=== PATIENT | female | born 1955 | race Caucasian/White ===

== ENCOUNTER 2017-12-29 18:48 | Emergency (ER) | payer OTHER, SELFPAY ==
[2017-12-29 18:55] VITALS: BP 222/117; PULSE 80; RESP 24; TEMP 36.7; O2SAT 99; BMI 26.9
--- NOTE | 2017-12-29 18:58 | DI.RAD.S_ITS ---
PROCEDURE: XR WRIST LT MIN 3V INDICATIONS: injury, pain, deformity TECHNIQUE: 3 views of the wrist were acquired. COMPARISON: None. FINDINGS: Bones: Impacted distal radial fracture is present. There is loss of the normal volar angulation of the distal radial articular surface. There is also ulnar styloid fracture, minimally displaced. Soft tissues: No suspicious soft tissue calcifications. IMPRESSION: Impacted distal radial fracture. Minimally displaced ulnar styloid fracture. Dictated by: Romeo Veloz M.D. on 12/29/2017 at 19:31 Approved by: Romeo Veloz M.D. on 12/29/2017 at 19:33
[2017-12-29] MEDS: HYDROMORPHONE 2 MG INJ 1 MG IV (20:22)
--- NOTE | 2017-12-29 20:53 | DI.RAD.S_ITS ---
PROCEDURE: XR WRIST LT 2V INDICATIONS: reduction splint TECHNIQUE: 2 views of the wrist were acquired. COMPARISON: [facility], CR, XR WRIST LT MIN 3V, 12/29/2017, 18:43. FINDINGS: Bones: There is improved alignment of distal radial fracture with less impaction. There is no definite change in alignment of the ulnar styloid fracture. Persistent loss of the normal volar angulation of the distal radial articular surface Soft tissues: No suspicious soft tissue calcifications. IMPRESSION: Distal radial and ulnar fractures as above with improved alignment Dictated by: Romeo Veloz M.D. on 12/29/2017 at 22:04 Approved by: Romeo Veloz M.D. on 12/29/2017 at 22:05
[2017-12-29 21:03] VITALS: BP 134/83; PULSE 89; RESP 14; O2SAT 96
[2017-12-29] MEDS: HYDROCODONE/ACET 5/325 PREPACK 1 BOTTLE MISC (21:04)
--- NOTE | 2017-12-30 04:41 | ED_ITS ---
HPI - Extremity Injury (Upper) General Chief Complaint: Extremity Injury, Upper Stated Complaint: pT STATES fx l WRIST Time Seen by Provider: 12/29/17 20:06 Source: patient and RN notes reviewed Mode of arrival: ambulatory Limitations: no limitations History of Present Illness HPI narrative: Patient is a 62-year-old female presenting with a left wrist pain. She you with in the bathroom trying to wash her feet off in the sink when she lost her balance falling directly onto her wrist. No head injury no loss of consciousness no other injuries. She is tearful in in quite a bit of pain. She denies any numbness or tingling. There is obvious deformity at the wrist. MD complaint: injury to: wrist Onset (ago): minute(s) (Prior to arrival) Related Data Home Medications Medication Instructions Recorded Confirmed albuterol sulfate [Proventil HFA] 1 puff INH #0 08/12/17 budesonide-formoterol [Symbicort] 2 puff INH BID #0 08/12/17 buspirone 10 mg PO QPM #0 08/12/17 calcium carbonate 600 mg PO QDAY #0 08/12/17 cholecalciferol (vitamin D3) 1,000 unit PO QDAY #0 08/12/17 [Vitamin D3] desloratadine 5 mg PO QDAY #0 08/12/17 fluticasone 2 spray INTRANASAL QDAY #0 08/12/17 gabapentin 100 mg PO TID #0 08/12/17 meloxicam 15 mg PO QDAY #0 08/12/17 omeprazole 20 mg PO BIDP PRN #0 08/12/17 zolpidem [Ambien] 5 mg PO HSP PRN #0 08/12/17 Previous Rx's Medication Instructions Recorded hydrocodone-acetaminophen [[place]] 1 tab PO Q4H PRN #10 tab 12/29/17 Allergies Allergy/AdvReac Type Severity Reaction Status Date / Time Sulfa (Sulfonamide Allergy Severe ITCHING Verified 12/29/17 20:22 Antibiotics) [SULFA (SULFONAMIDE ANTIBIOTICS)] Review of Systems Review of Systems All systems reviewed & are unremarkable except as noted in HPI and below Constitutional Denies chills, Denies fever(s), Denies frequent falls and Denies headache(s) ENT Ears, Nose, Mouth, and Throat: Denies headache(s) Cardiovascular Denies chest pain, Denies syncope, Denies rapid heart rate, Denies irregular heart rhythm, Denies lightheadedness, Denies palpitations, Denies dyspnea, Denies dyspnea on exertion and Denies orthopnea Respiratory Denies cough, Denies dyspnea, Denies dyspnea on exertion and Denies wheezing Gastrointestinal Gastrointestinal: Denies abdominal pain, Denies change in bowel habits, Denies diarrhea, Denies nausea and Denies vomiting Musculoskeletal Reports system reviewed and no additional complaints, except as docu, Reports deformity, Denies numbness and Denies tingling Integumentary/Breasts Denies bleeding lesions, Denies pruritus, Denies erythema, Denies rash and Denies wounds Neurologic Denies syncope, Denies frequent falls, Denies headache(s), Denies numbness and Denies tingling Endocrine Denies palpitations Allergic/Immunologic Denies wheezing PFSH Medical History TIA (transient ischemic attack) (Acute) Social History Smoking Status: Never smoker Exam Initial Vital Signs Initial Vital Signs: Vital Signs Temperature 98.1 F 12/29/17 18:55 Pulse Rate 80 12/29/17 18:55 Respiratory Rate 24 12/29/17 18:55 Blood Pressure 222/117 H 12/29/17 18:55 Pulse Oximetry 99 12/29/17 18:55 Const General: acute distress (In pain) and anxious [facility] Head: normal to inspection, normocephalic and atraumatic Ears: hearing grossly normal bilaterally Face and sinus: normal facial exam and face symmetric Neck Neck: full ROM Resp Effort & Inspection: normal respiratory effort and able to speak in complete sentences Cardio Pulses: radial pulses present and ulnar radial pulses present Neuro General: alert, awake and oriented x3 Extrem Left upper extremity: wrist Details: abnormal to inspection Details: obvious deformity, swelling Location: of the dorsal wrist, normal ROM (Able to add in abduct all fingers, not able to move wrist), radial pulse present and ulnar pulse present; no lacerations and no foreign bodies Procedures Nerve Block Nerve Block 1: Time out performed: Yes Local Anesthetic: lidocaine 1% Amount of anesthesia used (mL): 5 Side: left Nerve Blocks: hematoma block Procedure Successful: Yes Patient Tolerated Procedure: Well and No complications Complications: none Orthopedic Fracture Reduction Fracture #1: Time Out Performed: Yes Side: left Fracture Reduction Location: radius and ulna Analgesia: hematoma block Technique: direct manipulation Post Reduction X-rays Demonstrate: acceptable reduction Post-reduction neuro exam: intact and no change Post-reduction vascular exam: intact and no change Splint Applied: Yes Patient Tolerated Procedure: Well Course Hospital Course: 1. Splint applied to left wrist 2. Type of device applied; sugar-tong 3. Applied by me with nursing assistance 4. Examined post splint, with good alignment and neurovascular intact Orders Ordered: ED Orders 12/29/17 20:53 XR wrist LT 2V Stat Discontinued Medications Hydrocodone Bitart/Acetaminophen (Vicodin Prepack) 1 bottle MISC SEEINSTR ONE Stop: 12/29/17 20:54 Last Admin: 12/29/17 21:04 Dose: 1 bottle Hydromorphone HCl (Dilaudid) 1 mg IV NOW ONE Stop: 12/29/17 20:16 Last Admin: 12/29/17 20:22 Dose: 1 mg Vital Signs - 8 hr 12/29/17 21:03 Pulse Rate 89 Respiratory Rate 14 Blood Pressure [Right Arm] 134/83 H Pulse Oximetry 96 MDM - Extremity Injury (Upper) Differential Diagnosis Differential diagnosis: Likely fracture of wrist, fracture of hand, dislocation of shoulder and fracture of clavicle Medical Records Attestation: I reviewed the patient's medical records. Imaging Data Left wrist x-ray: Attestation: I personally reviewed and interpreted this imaging study as follows: Radiologist's impression: PROCEDURE: XR WRIST LT MIN 3V INDICATIONS: injury, pain, deformity TECHNIQUE: 3 views of the wrist were acquired. COMPARISON: None. FINDINGS: Bones: Impacted distal radial fracture is present. There is loss of the normal volar angulation of the distal radial articular surface. There is also ulnar styloid fracture, minimally displaced. Soft tissues: No suspicious soft tissue calcifications. IMPRESSION: Impacted distal radial fracture. Minimally displaced ulnar styloid fracture. Post reduction: Attestation: I personally reviewed and interpreted this imaging study as follows: Radiologist's impression: PROCEDURE: XR WRIST LT 2V INDICATIONS: reduction splint TECHNIQUE: 2 views of the wrist were acquired. COMPARISON: [facility], XR WRIST LT MIN 3V, 12/29/2017, 18:43. FINDINGS: Bones: There is improved alignment of distal radial fracture with less impaction. There is no definite change in alignment of the ulnar styloid fracture. Persistent loss of the normal volar angulation of the distal radial articular surface Soft tissues: No suspicious soft tissue calcifications. IMPRESSION: Distal radial and ulnar fractures as above with improved alignment MDM Narrative Medical decision making narrative: Patient is given sling. Her directed the follow up with Orthopedics. He is feeling much better. Initial blood pressure was quite elevated over after pain medications and hematoma block she is doing much better. Discharge Plan Departure Patient Disposition: Home, Self-Care Clinical Impression: Fracture of left wrist Discharge Date/Time: 12/29/17 21:19 Interventions: ED Discharge Assessment Last Done: 12/29/17 21:17 Instructions: DI for Wrist Fracture Activity Restrictions/Additional Instructions: *You have been diagnosed with left wrist fracture *What to do: Keep in splint at all times, wear sling while active *Take medications as directed -[place] 1 tablet every 4 hr or 2 tablets every 6 hr *Follow up with your primary care provider in 2-3 days, call Orthopedics tomorrow to schedule follow-up appointment *Return to ER if you should have increased numbness or tingling or any new, worsening or concerning symptoms Prescriptions: New hydrocodone-acetaminophen [[place]] 5-325 mg tablet 1 tab PO Q4H PRN (Reason: pain) Qty: 10 RF: 0 No Action desloratadine 5 MG tablet 5 mg PO QDAY Qty: 0 RF: 0 zolpidem [Ambien] 10 MG tablet 5 mg PO HSP PRNQty: 0 RF: 0 albuterol sulfate [Proventil HFA] 90 MCG/PUFF HFA aerosol inhaler 1 puff INH Qty: 0 RF: 0 fluticasone 16 GM spray,suspension 2 spray Intranasal QDAY Qty: 0 RF: 0 budesonide-formoterol [Symbicort] 80 MCG/4.5 MCG HFA aerosol inhaler 2 puff INH BID Qty: 0 RF: 0 omeprazole 20 MG capsule,delayed release(DR/EC) 20 mg PO BIDP PRNQty: 0 RF: 0 gabapentin 100 MG capsule 100 mg PO TID Qty: 0 RF: 0 cholecalciferol (vitamin D3) [Vitamin D3] 1,000 UNIT tablet 1,000 unit PO QDAY Qty: 0 RF: 0 calcium carbonate 600 MG tablet 600 mg PO QDAY Qty: 0 RF: 0 buspirone 5 MG tablet 10 mg PO QPM Qty: 0 RF: 0 meloxicam 15 MG tablet 15 mg PO QDAY Qty: 0 RF: 0 Referrals: [facility] [Outside] Juanita Rees PA-C [Primary Care Provider] -
== END 2017-12-29 21:19 | disposition home or self-care (01) ==
PROVIDERS: Emergency Provider Emergency Medicine; Family Provider Physician Assistant; PCP Physician Assistant
DX: S62.102A Fracture of unspecified carpal bone, left wrist, initial encounter for closed fracture (principal); W17.89XA Other fall from one level to another, initial encounter
CPT/HCPCS: 73100; 73110; 96374; 99282; 99283; 99284; J1170

== ENCOUNTER 2018-02-24 07:54 | Day surgery (SDC) | payer OTHER, SELFPAY ==
[2018-02-24 08:17] VITALS: BP 120/82; PULSE 87; RESP 15; TEMP 36.8; O2SAT 94
[2018-02-24] MEDS: SODIUM CHLORIDE 0.9% 1,000 ML 200 ML IV (08:35)
--- NOTE | 2018-02-24 08:57 | SUR.PREOP ---
Pt is ready for procedure at this time. Nursing assessment has been completed, PIV in place and IV running at TKO. Medication history has been reviewed with Pt and she has brought in her Medical history form. Awaiting Dr Crowley to see Pt and sign the consent.
--- NOTE | 2018-02-24 09:12 | PM.HP.1 ---
History of Present Illness Date Patient Seen: 02/24/18 Time Patient Seen: 09:12 Chief complaint: [id number] SCREENING COLONOSCOPY Narrative: Jennifer is a very pleasant 62-year-old lady who presents today for screening colonoscopy. She denies any problems or symptoms related to the function of her GI tract. She reports her last colonoscopy was more than 10 years ago. Her weight is fairly stable though she thinks she may have lost her 3 lb over the summer. Patient History Medical History TIA (transient ischemic attack) (Acute) Family & Social History Family History: Reviewed 02/24/18 by Nanette Crowley MD Social History: household members spouse Tobacco & Substance use: Smoking Status Never smoker alcohol intake frequency 0-2 drinks per day Substance Use Type does not use Meds Home Medications Medication Instructions Recorded Confirmed Type albuterol sulfate [Proventil HFA] 1 puff INH PRN PRN #0 08/12/17 02/24/18 History budesonide-formoterol [Symbicort] 2 puff INH DAILY #0 08/12/17 02/24/18 History buspirone 10 mg PO QPM #0 08/12/17 02/24/18 History calcium carbonate 600 mg PO QDAY #0 08/12/17 History cholecalciferol (vitamin D3) 1,000 unit PO QDAY #0 08/12/17 History [Vitamin D3] desloratadine 5 mg PO QDAY #0 08/12/17 02/24/18 History fluticasone 2 spray INTRANASAL QDAY #0 08/12/17 02/24/18 History gabapentin 100 mg PO SEEINSTR PRN #0 08/12/17 02/24/18 History meloxicam 15 mg PO QDAY #0 08/12/17 History omeprazole 20 mg PO BID #0 08/12/17 02/24/18 History zolpidem [Ambien] 5 mg PO HSP PRN #0 08/12/17 History hydrocodone-acetaminophen [[place]] 1 tab PO Q4H PRN #10 tab 12/29/17 Rx Ambien 1 tab PO DAILY 02/24/18 02/24/18 History fluticasone 1 spray DAILY 02/24/18 02/24/18 History Allergies Allergy/AdvReac Type Severity Reaction Status Date / Time Sulfa (Sulfonamide Allergy Severe ITCHING Verified 02/24/18 08:43 Antibiotics) [SULFA (SULFONAMIDE ANTIBIOTICS)] Review of Systems Review of Systems All systems reviewed & are unremarkable except as noted in HPI and below Exam Vital Signs (past 8 hours): - 02/24/18 08:17 Temperature 98.2 F Pulse Rate 87 Respiratory Rate 15 Blood Pressure 120/82 H Pulse Oximetry 94 Oxygen Delivery Method Room Air Narrative Exam Narrative: Very pleasant 6-year-old lady in no distress HEENT: Normocephalic and atraumatic, pupils equal round reactive to light accommodation with anicteric sclera Lungs: Clear to auscultation bilaterally Heart: Regular rate and rhythm Abdomen: Soft, nontender, active bowel sounds. Extremities: Warm and well perfused Assessment & Plan Plan: Assessment/Plan Narrative: Lo 62-year-old lady who is generally very healthy. She presents today for screening colonoscopy. We discussed the risks and benefits of the procedure the patient expressed a desire to completed today.
[2018-02-24] MEDS: MIDAZOLAM 5 MG/5 ML VIAL IV (09:37)
[2018-02-24] MEDS: fentaNYL 250 MCG/5 ML INJ IV (09:37)
[2018-02-24 09:42] VITALS: BP 106/72; PULSE 83; RESP 14; TEMP 36.6; O2SAT 94
--- NOTE | 2018-02-24 09:42 | PM.OP.1 ---
Operative Date/Time/Diagnoses Date of procedure: 02/24/18 Time of procedure: 09:43 Pre-op diagnosis: Screening colonoscopy Post-op diagnosis: same Procedure & Clinicians Procedure: Colonoscopy to the cecum Same procedure as scheduled: Yes Indications: Last colonoscopy more than 10 years ago Surgeon: Nanette Crowley Click Yes if Unassisted: Yes Anesthesia Type: Sedation (Versed 5 mg; fentanyl 200 mcg) Operative Notes Findings: 1. Excellent prep 2. No polyps or mass lesions 3. No AV malformations 4. Scattered diverticuli with a few large pockets. There are relatively more in the sigmoid colon then the remainder of the colon but no concentrated areas of disease. 5. Grade 1-2 internal hemorrhoids Closure Type: not applicable Specimen(s): none sent Estimated Blood Loss (mL): 0 Procedure in detail: After obtaining informed consent, the patient was brought to the GI suite and placed in the left lateral decubitus position on the examination table. After placement of appropriate monitors, the patient was given incremental doses of Versed and Fentanyl until an appropriate level of sedation was achieved. A time out was held per SCOAP protocol. A digital rectal examination was performed and did not reveal any masses or obstructing lesions. The colonoscope was gently passed into the patient's anus and the entire colon navigated to the level of the cecum with minimal difficulty. Once in the cecum, the scope was withdrawn being sure to go before and beyond all mucosal folds and prominences and get an excellent examination. The findings are noted above. At the level of the rectal vault, the scope was retroflexed and the internal anal canal was examined. The scope was straightened and air aspirated from the colon. The instrument was removed from the patient's body and the procedure was concluded. The patient was allowed to awaken from sedation without difficulty and taken to the post-anesthesia care unit in good condition. Total sedation time was 20 min Total withdrawal time was 7 min 16 sec Complications: none Condition: stable Disposition: PACU Plan for aftercare: 1. Discharge to home 2. Plan for next colonoscopy in 10 years or as clinically indicated
[2018-02-24 09:47] VITALS: BP 108/76; PULSE 82; RESP 15; O2SAT 95
[2018-02-24 09:53] VITALS: BP 110/79; PULSE 79; RESP 13; TEMP 36.1; O2SAT 95
[2018-02-24 09:57] VITALS: BP 108/73; PULSE 75; RESP 15; TEMP 36.4; O2SAT 95
[2018-02-24 10:02] VITALS: BP 119/78; PULSE 79; RESP 16; TEMP 36.2; O2SAT 97
== END 2018-02-24 10:13 | disposition home or self-care (01) ==
PROVIDERS: Family Provider Physician Assistant; PCP Physician Assistant; Visit Provider Surgery
PROC: 0DJD8ZZ Inspection of Lower Intestinal Tract, Via Natural or Artificial Opening Endoscopic (ICD-10-PCS; CPT 45378; principal; 2018-02-24 08:45)
DX: Z12.11 Encounter for screening for malignant neoplasm of colon (principal); K57.30 Diverticulosis of large intestine without perforation or abscess without bleeding; K64.1 Second degree hemorrhoids; Z86.73 Personal history of transient ischemic attack (TIA), and cerebral infarction without residual deficits
CPT/HCPCS: 45378; 99152; J2250; J3010

== ENCOUNTER → 2018-09-01 13:59 | Outpatient (CLI) | payer OTHER, SELFPAY ==
--- NOTE | 2018-09-01 | DI.RAD.S_ITS ---
PROCEDURE: XR WRIST LT MIN 3V INDICATIONS: LEFT WRIST PAIN TECHNIQUE: 4 views of the wrist were acquired. COMPARISON: [facility], CR, XR WRIST LT MIN 3V, 12/29/2017, 18:43. [facility], CR, XR WRIST LT 2V, 12/29/2017, 20:56. FINDINGS: Bones: Plate and screw fixation of the distal radius and expected postoperative alignment. The hardware appears intact. First CMC and triscaphe joint degeneration. Ulnar styloid fracture as before Soft tissues: No suspicious soft tissue calcifications. IMPRESSION: Expected postoperative alignment of plate and screw fixation of the distal radius Dictated by: Romeo Veloz M.D. on 09/01/2018 at 15:13 Approved by: Romeo Veloz M.D. on 09/01/2018 at 15:17
== END ==
PROVIDERS: Family Provider Physician Assistant; PCP Physician Assistant; Visit Provider Family Medicine
DX: M25.532 Pain in left wrist (principal); S52.502D Unspecified fracture of the lower end of left radius, subsequent encounter for closed fracture with routine healing; S52.612D Displaced fracture of left ulna styloid process, subsequent encounter for closed fracture with routine healing; M18.12 Unilateral primary osteoarthritis of first carpometacarpal joint, left hand
CPT/HCPCS: 73110

== ENCOUNTER → 2018-09-08 11:03 | Outpatient (CLI) | payer OTHER, SELFPAY ==
--- NOTE | 2018-09-08 | DI.RAD.S_ITS ---
PROCEDURE: FL BARIUM SWALLOW INDICATIONS: DYSPHAGIA COMPARISON: None. FINDINGS: Function: There is normal esophageal peristalsis. No elicited gastroesophageal reflux. Morphology: Air-contrast images demonstrate normal mucosal morphology. Single contrast views show no esophageal strictures, extrinsic mass effects, or diverticula. Limited images of the stomach demonstrate normal appearance. IMPRESSION: Normal examination. Dictated by: Jeffery Hines M.D. on 09/08/2018 at 12:16 Approved by: Jeffery Hines M.D. on 09/08/2018 at 12:17
== END ==
PROVIDERS: Family Provider Physician Assistant; PCP Physician Assistant; Visit Provider Family Medicine
DX: R13.10 Dysphagia, unspecified (principal)
CPT/HCPCS: 74220

== ENCOUNTER → 2018-10-05 10:43 | Outpatient (CLI) | payer OTHER, SELFPAY ==
--- NOTE | 2018-10-05 | DI.MRI.S_ITS ---
PROCEDURE: MR WRIST LT W CON INDICATIONS: Other intraarticular fracture of lower end of left radius TECHNIQUE: After the administration of 3-4 mL of dilute intra-articular Gadolinium contrast into the radiocarpal compartment, coronal T1 spin echo with fat saturation and T2 fast spin echo with fat saturation, axial T1 spin echo and T2 fast spin echo with fat saturation, sagittal T1 spin echo with and without fat saturation through the wrist. COMPARISON: [facility], CR, XR WRIST LT MIN 3V, 09/01/2018, 14:06. FINDINGS: Image quality: Susceptibility artifact is noted in distal radius from internal fixation hardware.. Bones and cartilage: Patient is status post internal fixation of distal radius with extensive blooming metallic artifact partially limits evaluation of marrow signal. The carpal bones are normally aligned. No gross marrow edema is seen. No gross acute fracture or dislocation is noted. No gross bony erosive changes are seen.. No evidence for avascular necrosis. Mild osteoarthritic changes along radial aspect of wrist joints are seen. Carpal ligaments: The scapholunate and lunotriquetral ligaments appear intact, without gadolinium extravasation into the mid-carpal compartment. The radioscaphocapitate and radiolunotriquetral ligaments appear intact. The arcuate ligament and short radiolunate ligament also appear normal. The dorsal intercarpal and radiotriquetral ligaments appear intact. On sagittal images, the pisohamate ligament appears intact. Triangular fibrocartilage complex: There is suggestion of triangular fibrocartilage tear near its radial insertion with contrast extending to distal radioulnar joint space. The adjacent meniscal homolog appears normal. The ulnar collateral ligament appears intact. The extensor carpi ulnaris tendon is normal in location and morphology. Tendons and soft tissues: The carpal tunnel structures appear normal, including the median nerve. The ulnar nerve appears normal within Guyon's canal. All six extensor tendon compartments demonstrate normal morphology, without pathologic tendon sheath fluid. No soft tissue ganglion cysts. IMPRESSION: 1. Post internal fixation changes in distal radius with significant susceptibility artifacts. No gross marrow edema. No gross acute fracture or dislocation. 2. Wrist intrinsic and extrinsic ligaments are grossly intact. 3. 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 4. Suggestion of TFCC tear near its radial insertion with contrast extending to distal radioulnar joint space. 5. Wrist tendons are grossly intact. Dictated by: Emir Sheridan M.D. on 10/05/2018 at 14:04 Approved by: Emir Sheridan M.D. on 10/05/2018 at 14:21
--- NOTE | 2018-10-05 | DI.RAD.S_ITS ---
PROCEDURE: FL WRIST INJECTION MR/CT LT INDICATIONS: Other intraarticular fracture of lower end of left TECHNIQUE: After informed consent had been obtained, the wrist was examined fluoroscopically, and a site chosen for injection of the radiocarpal compartment from a dorsal approach. Skin was prepped and draped in a sterile fashion and 1% lidocaine infiltrated from the skin down to the articular surface. A hypodermic needle was then introduced into the articular space and a modest amount of contrast medium was instilled confirming intra-articular needle tip placement. This was followed by approximately 4 mL of a dilute gadolinium solution. Needle was removed and dressing was applied. The patient experienced no complications throughout the procedure and left the fluoroscopic suite in no apparent distress. FINDINGS: A single fluoroscopic spot image demonstrates intra-articular location to injected iodinated contrast. IMPRESSION: Successful fluoroscopic-guided administration of dilute Gadolinium solution for wrist MR arthrogram. Dictated by: Jeffery Hines M.D. on 10/05/2018 at 14:17 Approved by: Jeffery Hines M.D. on 10/05/2018 at 14:18
== END ==
PROVIDERS: Family Provider Physician Assistant; PCP Physician Assistant; Visit Provider Orthopaedic Surgery
DX: S52.572A Other intraarticular fracture of lower end of left radius, initial encounter for closed fracture (principal)
CPT/HCPCS: 20605; 73222; 76000

== ENCOUNTER → 2018-11-07 09:48 | Outpatient (CLI) | payer OTHER, SELFPAY ==
--- NOTE | 2018-11-07 | DI.RAD.S_ITS ---
PROCEDURE: XR RIBS LT MIN 3V W CXR1V INDICATIONS: LEFT RIB PAIN TECHNIQUE: 2 views of the left ribs were acquired, along with a single view chest. COMPARISON: None. FINDINGS: Surgical changes and devices: None. Bones and chest wall: No displaced acute rib fractures visualized. There is, however, subtle periosteal reaction or callus formation in the lateral aspect of the left second, third and fourth ribs. No suspicious bony lesions. Overlying soft tissues appear unremarkable. Lungs and pleura: No pleural effusions or pneumothorax. Lungs appear clear. Mediastinum: Mediastinal contours appear normal. Heart size is normal. IMPRESSION: Possible late subacute or old fractures of the left second, third and fourth rib fractures. Dictated by: Erick Pennington M.D. on 11/07/2018 at 10:32 Approved by: Erick Pennington M.D. on 11/07/2018 at 10:46
== END ==
PROVIDERS: Family Provider Physician Assistant; PCP Physician Assistant; Visit Provider Physician Assistant
DX: R07.81 Pleurodynia (principal)
CPT/HCPCS: 71101

== ENCOUNTER → 2019-06-02 13:17 | Outpatient (CLI) | payer OTHER, SELFPAY ==
[2019-06-02 14:26] LABS: Add Manual Diff / Slide Review NO; Basophils Absolute Auto 0 /uL (0-100); Basophils Percent Auto 0.7 % (0-2); Eosinophils Absolute Auto 100 /uL (0-450); Eosinophils Percent Auto 1.5 % (2-4); Hematocrit 39.8 % (36-46); Hemoglobin 13.5 g/dL (12.0-16.0); Lymphocytes Absolute Auto 1400 /uL (1100-4500); Lymphocytes Percent Auto 29.4 % (25-40); Mean Corpuscular HGB Conc 33.9 % (30-36); Mean Corpuscular Hemoglobin 28.9 PG (26-34); Mean Corpuscular Volume 85.1 fL (80-100); Monocytes Absolute Auto 300 /uL (0-900); Monocytes Percent Auto 5.6 % (3-14); Neutrophils Absolute Auto 3000 /uL (1500-7000); Neutrophils Percent Auto 62.8 % (50-75); Platelet Count 372 X10^3/uL (150-400); Red Blood Cell Count 4.67 X10^6/uL (4.0-5.2); Red Cell Distribution Width 14.1 % (11.6-14.8); White Blood Cell Count 4.7 X10^3/uL (4.5-11.0)
[2019-06-02 14:36] LABS: Alanine Aminotransferase 18 IU/L (9-52); Albumin 4.7 g/dL (3.5-5.0); Albumin Globulin Ratio 1.3 (1.0-2.8); Alkaline Phosphatase 62 U/L (38-126); Aspartate Aminotransferase 27 IU/L (14-36); Bilirubin Total 0.6 mg/dL (0.2-1.3); Blood Urea Nitrogen 12 mg/dL (7-17); Calcium 9.6 mg/dL (8.4-10.2); Carbon Dioxide 27 mmol/L (22-32); Chloride 102 mmol/L (98-107); Estimated Glomerular Filt Rate > 60.0 mL/min (>60); Globulin 3.5 g/dL (1.7-4.1); Glucose 110 mg/dL (80-110); HEMOLYSIS < 15 (0-50); Potassium 4.2 mmol/L (3.4-5.1); Sodium 140 mmol/L (137-145); Total Protein 8.2 g/dL (6.3-8.2)
[2019-06-02 14:48] LABS: Erythrocyte Sedimentation Rate 17 MM/HR (0-20)
[2019-06-02 15:44] LABS: Thyroid Stimulating Hormone 1.05 uIU/mL (0.47-4.68)
[2019-06-09 11:29] LABS: ANA Pattern NUCLEAR, SPECKLED; ANA Screen, IFA POSITIVE (NEGATIVE)
== END ==
PROVIDERS: PCP Physician Assistant; Visit Provider Family Medicine
DX: H04.123 Dry eye syndrome of bilateral lacrimal glands (principal)
CPT/HCPCS: 36415; 80053; 84443; 85025; 85651; 86038; 86235

== ENCOUNTER → 2019-09-20 12:37 | Outpatient (CLI) | payer OTHER, SELFPAY ==
--- NOTE | 2019-09-20 | DI.RAD.S_ITS ---
PROCEDURE: XR WRIST LT MIN 3V INDICATIONS: LEFT WRIST PAIN TECHNIQUE: 4 views of the wrist were acquired. COMPARISON: [facility], CR, XR WRIST LT MIN 3V, 09/01/2018, 14:06. [facility], CR, XR WRIST LT 2V, 12/29/2017, 20:56. FINDINGS: Bones: No previously unidentified fractures or dislocations. A distal radius fixation plate and screws show no evidence of loosening or disruption. Mild osteoarthritic change at the intercarpal and radiocarpal joints appears present. No suspicious bony lesions. Scaphoid view: No trauma the scaphoid is found. Soft tissues: No suspicious soft tissue calcifications. IMPRESSION: Prior distal radius fracture fixation, stable, no sign of new trauma. Source of new pain is not found. Dictated by: Jeffery Hines M.D. on 09/20/2019 at 13:36 Approved by: Jeffery Hines M.D. on 09/20/2019 at 13:37
== END ==
PROVIDERS: PCP Physician Assistant; Referring Provider Family Medicine; Visit Provider Family Medicine
DX: M25.532 Pain in left wrist (principal)
CPT/HCPCS: 73110

== ENCOUNTER 2021-10-10 20:18 | Emergency (ER) | payer OTHER, SELFPAY ==
[2021-10-10] VITALS (10 sets, daily range): BP systolic 125–168; BP diastolic 75–95; PULSE 65–81; RESP 16–38; TEMP 36.9; O2SAT 96–98; BMI 26.2
--- NOTE | 2021-10-10 20:28 | DI.RAD.S_ITS ---
PROCEDURE: XR CHEST 1V INDICATIONS: chest pain TECHNIQUE: One view of the chest was acquired. COMPARISON: [facility], , CHEST 2 VIEW, 11/10/2017, 17:06. FINDINGS: Surgical changes and devices: None. Lungs and pleura: Lungs are clear. No pleural effusions or pneumothorax. Mediastinum: Mediastinal contours appear normal. Heart size is normal. Bones and chest wall: No suspicious bony lesions. Overlying soft tissues appear unremarkable. IMPRESSION: No evidence acute pulmonary process. Dictated by: Domingo Dunaway M.D. on 10/10/2021 at 20:57 Approved by: Domingo Dunaway M.D. on 10/10/2021 at 20:57
--- NOTE | 2021-10-10 20:35 | ED.CHESTPAIN ---
HPI - Chest Pain General Chief Complaint: Chest Pain Stated Complaint: feeling funny, had chest pains earlier Time Seen by Provider: 10/10/21 20:26 History of Present Illness HPI narrative: 66-year-old female nonsmoker with noncontributory medical history presents with a chief complaint of feeling funny over the course of the day with multiple symptoms including some chest pressure and heaviness as well as palpitations, dizziness and lightheadedness. She denies any current symptoms. She denies any obvious provocation, palliation or radiation of her symptoms. She denies any recent change in medications or diet. She denies long distance travel, history of clot, weight gain or other. Related Data Home Medications Medication Instructions Recorded Confirmed albuterol sulfate 90 mcg/actuation 1 puff INH PRN PRN #0 08/12/17 02/24/18 aerosol inhaler (Proventil HFA) budesonide-formoterol HFA 80 2 puff INH DAILY #0 08/12/17 02/24/18 mcg-4.5 mcg/actuation aerosol inhaler (Symbicort) buspirone 5 mg tablet 10 mg PO QPM #0 08/12/17 02/24/18 calcium carbonate 600 mg calcium 600 mg PO QDAY #0 08/12/17 (1,500 mg) tablet cholecalciferol (vitamin D3) 25 1,000 unit PO QDAY #0 08/12/17 mcg (1,000 unit) tablet (Vitamin D3) desloratadine 5 mg tablet 5 mg PO QDAY #0 08/12/17 02/24/18 fluticasone propionate 50 2 spray INTRANASAL QDAY #0 08/12/17 02/24/18 mcg/actuation nasal spray,suspension gabapentin 100 mg capsule 100 mg PO SEEINSTR PRN #0 08/12/17 02/24/18 meloxicam 15 mg tablet 15 mg PO QDAY #0 08/12/17 omeprazole 20 mg capsule,delayed 20 mg PO BID #0 08/12/17 02/24/18 release zolpidem 10 mg tablet (Ambien) 5 mg PO HSP PRN #0 08/12/17 Ambien 1 tab PO DAILY 02/24/18 02/24/18 fluticasone 1 spray DAILY 02/24/18 02/24/18 Previous Rx's Medication Instructions Recorded hydrocodone 5 mg-acetaminophen 325 1 tab PO Q4H PRN #10 tab 12/29/17 mg tablet ([place]) Allergies Allergy/AdvReac Type Severity Reaction Status Date / Time Sulfa (Sulfonamide Allergy Severe ITCHING Verified 02/24/18 08:43 Antibiotics) [SULFA (SULFONAMIDE ANTIBIOTICS)] Review of Systems Review of Systems Narrative: GENERAL: Denies chills, fatigue, malaise, fever, sweats. HEENT: Denies sinus pain, ear pain, sore throat, difficulty swallowing, dizziness. RESPIRATORY: See HPI CARDIOVASCULAR: See HPI GASTROINTESTINAL: Denies nausea, vomiting, abdominal pain, diarrhea, constipation, melena. : Denies dysuria, frequency, incontinence, hematuria, urinary retention. MUSCULOSKELETAL: denies weakness, joint pain, or bony pain SKIN: Denies rash, skin lesions, or other NEUROLOGIC: Denies weakness, headache, numbness, change in speech, confusion, seizures, incoordination. PSYCHIATRIC: No concerning psychosocial issues. 12 point review of systems is negative except for those stated above Patient History Medical History (Updated 10/10/21 @ 23:37 by Marc Larson DO) TIA (transient ischemic attack) Social History household members: spouse Smoking Status: Never smoker Smoking Status: Never smoker alcohol intake frequency: 0-2 drinks per day Substance Use Type: does not use Exam Narrative Exam Narrative: GENERAL: [66] year old patient appears stated age. Well-developed patient, in mild distress. HEAD: Atraumatic. Normocephalic. EYES: Pupils equal round and reactive. Extraocular motions intact. No scleral icterus. No injection or drainage. ENT: Nose without bleeding, purulent drainage. Throat without erythema, tonsillar hypertrophy or exudate. Airway patent. NECK: Trachea midline. Non tender CARDIOVASCULAR: Regular rate and rhythm without murmurs, gallops, or rubs. RESPIRATORY: Clear to auscultation. Breath sounds equal bilaterally. No wheezes, rales, or rhonchi. GASTROINTESTINAL: Abdomen soft, non-tender, nondistended. EXTREMITIES: No edema or joint tenderness. BACK: Nontender without deformity or crepitance. No flank tenderness. NEURO: AOx3. SKIN: No rash or erythema of visible areas Initial Vital Signs Initial Vital Signs: Vital Signs Temperature 98.4 F 10/10/21 20:27 Pulse Rate 71 10/10/21 20:27 Respiratory Rate 16 10/10/21 20:27 Blood Pressure 168/90 H 10/10/21 20:27 Pulse Oximetry 98 10/10/21 20:27 Course Orders Ordered: ED Orders 10/10/21 20:28 XR chest 1V Stat EKG-12 Lead Stat 10/10/21 20:34 COVID19 -Nasal swab/Pre-Proc Stat Complete Blood Count AUTO DIFF Stat Comprehensive Metabolic Panel Stat Lipase Stat Magnesium Stat Troponin & CK Cardiac Panel Stat 10/10/21 22:35 Troponin I Stat Reevaluation(s) Reevaluation #1: Asymptomatic for duration of visit. Vital Signs Vital signs: Vital Signs - 8 hr 10/10/21 20:27 10/10/21 20:50 10/10/21 20:51 Temperature 98.4 F Pulse Rate 71 66 81 Respiratory Rate 16 37 H 38 H Blood Pressure 168/90 H 138/95 H Pulse Oximetry 98 98 98 10/10/21 21:00 10/10/21 21:30 10/10/21 22:00 Temperature Pulse Rate 66 75 65 Respiratory Rate 33 H 17 30 H Blood Pressure 137/79 145/79 H 138/77 Pulse Oximetry 98 98 98 10/10/21 22:30 10/10/21 22:31 10/10/21 23:00 Temperature Pulse Rate 78 74 68 Respiratory Rate 31 H 28 H 27 H Blood Pressure 130/93 H 125/78 Pulse Oximetry 96 98 97 10/10/21 23:30 Temperature Pulse Rate 70 Respiratory Rate 26 H Blood Pressure 137/75 Pulse Oximetry 97 MDM - Chest Pain Lab Data Result diagrams: 10/10/21 20:34 10/10/21 20:34 Labs: Lab Results 10/10/21 10/10/21 10/10/21 Range/Units 20:34 20:34 20:34 WBC 5.8 (4.5-11.0) X10^3/uL RBC 4.65 (4.0-5.2) X10^6/uL Hgb 12.7 (12.0-16.0) g/dL Hct 39.5 (36-46) % MCV 85.0 (80-100) fL MCH 27.3 (26-34) PG MCHC 32.1 (30-36) % RDW 14.1 (11.6-14.8) % Plt Count 315 (150-400) X10^3/uL Neut % (Auto) 48.7 L (50-75) % Lymph % (Auto) 39.3 (25-40) % [place] % (Auto) 9.0 (3-14) % Eos % (Auto) 2.2 (2-4) % Baso % (Auto) 0.8 (0-2) % Neut # (Auto) 2800 (5593-8017) /uL Lymph # (Auto) 2300 (2198-2516) /uL [place] # (Auto) 500 (0-900) /uL Eos # (Auto) 100 (0-450) /uL Baso # (Auto) 0 (0-100) /uL Sodium 142 (137-145) mmol/L Potassium 4.1 (3.4-5.1) mmol/L Chloride 110 H (98-107) mmol/L Carbon Dioxide 25 (22-32) mmol/L BUN 14 (7-17) mg/dL Creatinine 0.76 (0.52-1.04) mg/dL Estimated GFR > 60.0 (>60) mL/min BUN/Creatinine Ratio 18.4 (6-22) Glucose 106 (80-110) mg/dL Calcium 9.3 (8.4-10.2) mg/dL Magnesium 2.2 (1.6-2.3) mg/dL Total Bilirubin 0.4 (0.2-1.3) mg/dL AST 29 (14-36) IU/L ALT 16 (<35) IU/L Alkaline Phosphatase 56 (38-126) U/L Total Creatine Kinase 57 (30-135) U/L CK-MB (CK-2) TNP CK-MB (CK-2) Rel Index TNP Troponin I < 0.012 (0.01-0.034) ng/mL Total Protein 8.0 (6.3-8.2) g/dL Albumin 4.5 (3.5-5.0) g/dL Globulin 3.5 (1.7-4.1) g/dL Albumin/Globulin Ratio 1.3 (1.0-2.8) Lipase 243 (23-300) U/L SARS-CoV-2 (PCR) Negative (Negative) 10/10/21 Range/Units 22:35 WBC (4.5-11.0) X10^3/uL RBC (4.0-5.2) X10^6/uL Hgb (12.0-16.0) g/dL Hct (36-46) % MCV (80-100) fL MCH (26-34) PG MCHC (30-36) % RDW (11.6-14.8) % Plt Count (150-400) X10^3/uL Neut % (Auto) (50-75) % Lymph % (Auto) (25-40) % [place] % (Auto) (3-14) % Eos % (Auto) (2-4) % Baso % (Auto) (0-2) % Neut # (Auto) (9842-6855) /uL Lymph # (Auto) (2721-5703) /uL [place] # (Auto) (0-900) /uL Eos # (Auto) (0-450) /uL Baso # (Auto) (0-100) /uL Sodium (137-145) mmol/L Potassium (3.4-5.1) mmol/L Chloride (98-107) mmol/L Carbon Dioxide (22-32) mmol/L BUN (7-17) mg/dL Creatinine (0.52-1.04) mg/dL Estimated GFR (>60) mL/min BUN/Creatinine Ratio (6-22) Glucose (80-110) mg/dL Calcium (8.4-10.2) mg/dL Magnesium (1.6-2.3) mg/dL Total Bilirubin (0.2-1.3) mg/dL AST (14-36) IU/L ALT (<35) IU/L Alkaline Phosphatase (38-126) U/L Total Creatine Kinase (30-135) U/L CK-MB (CK-2) CK-MB (CK-2) Rel Index Troponin I 0.023 (0.01-0.034) ng/mL Total Protein (6.3-8.2) g/dL Albumin (3.5-5.0) g/dL Globulin (1.7-4.1) g/dL Albumin/Globulin Ratio (1.0-2.8) Lipase (23-300) U/L SARS-CoV-2 (PCR) (Negative) MDM Narrative Medical decision making narrative: Multiple causes of chest pain considered including OR, PE, pneumothorax, pneumonia, aortic dissection, and pleurisy. Patient reports no radiation, no diaphoresis, no provocation with exertion, and no vomiting. Patient has nonischemic EKG and troponin x2 is negative. Findings and discharge diagnosis discussed with patient/family followed by verbalization of understanding Return precautions discussed with patient/family whom verbalize understanding. Discharge Plan Departure Patient Disposition: Home Clinical Impression: Atypical chest pain Instructions: DI for Atypical Chest Pain Activity Restrictions/Additional Instructions: *You have been diagnosed with [atypical chest pain. Your story, lab work, EKGs are very reassuring and there is no suggestion of heart attack or blood clot or other life-threatening cause of your symptoms. *What to do: *Please continue to take your regular medications as directed. [ ] New medication prescriptions sent to your pharmacy: [ ] [ ] New medication written as a paper prescription [ x] No new medications given *Please follow up with your primary care provider in 2-3 days, call for an appointment. Let them know you were seen in the Emergency Department and that we ask that you be seen in follow up. We will electronically transmit a record of today's note if your PCP is in our system *If you do not have a primary care provider please contact the [facility] Resource line at [phone]. They will ask some questions about your medical history and help get you set up with a doctor in the community. *Return to Emergency Department if you should have any new, worsening or concerning symptoms, such as [fever greater than 101 F, shaking chills, worsening pain, persistent vomiting or other bothersome symptoms] Prescriptions: No Action desloratadine 5 MG tablet 5 mg PO QDAY Qty: 0 0RF zolpidem [Ambien] 10 MG tablet 5 mg PO HSP PRNQty: 0 0RF albuterol sulfate [Proventil HFA] 90 MCG/PUFF HFA aerosol inhaler 1 puff INH PRN PRN (Reason: Wheezing) Qty: 0 0RF fluticasone propionate 16 GM spray,suspension 2 spray Intranasal QDAY Qty: 0 0RF budesonide-formoterol [Symbicort] 80 MCG/4.5 MCG HFA aerosol inhaler 2 puff INH DAILY Qty: 0 0RF Label Comments: Pt reports she only takes once/day not twice omeprazole 20 MG capsule,delayed release(DR/EC) 20 mg PO BID Qty: 0 0RF gabapentin 100 MG capsule 100 mg PO SEEINSTR PRN (Reason: pain) Qty: 0 0RF Label Comments: Pt only takes as needed now cholecalciferol (vitamin D3) [Vitamin D3] 1,000 UNIT tablet 1,000 unit PO QDAY Qty: 0 0RF calcium carbonate 600 MG tablet 600 mg PO QDAY Qty: 0 0RF buspirone 5 MG tablet 10 mg PO QPM Qty: 0 0RF meloxicam 15 MG tablet 15 mg PO QDAY Qty: 0 0RF Ambien 10 Mg 1 tab PO DAILY 0RF Label Comments: Daily as HS as needed. fluticasone 1 spray aerosol 1 spray DAILY 0RF hydrocodone-acetaminophen [[place]] 5-325 mg tablet 1 tab PO Q4H PRN (Reason: pain) Qty: 10 0RF Referrals: Juanita Rees PA-C [Primary Care Provider] -
[2021-10-10 20:44] LABS: Add Manual Diff / Slide Review NO; Basophils Absolute Auto 0 /uL (0-100); Basophils Percent Auto 0.8 % (0-2); Eosinophils Absolute Auto 100 /uL (0-450); Eosinophils Percent Auto 2.2 % (2-4); Hematocrit 39.5 % (36-46); Hemoglobin 12.7 g/dL (12.0-16.0); Lymphocytes Absolute Auto 2300 /uL (1100-4500); Lymphocytes Percent Auto 39.3 % (25-40); Mean Corpuscular HGB Conc 32.1 % (30-36); Mean Corpuscular Hemoglobin 27.3 PG (26-34); Monocytes Absolute Auto 500 /uL (0-900); Neutrophils Absolute Auto 2800 /uL (1500-7000); Neutrophils Percent Auto 48.7 % (50-75); Platelet Count 315 X10^3/uL (150-400); Red Blood Cell Count 4.65 X10^6/uL (4.0-5.2); Red Cell Distribution Width 14.1 % (11.6-14.8); White Blood Cell Count 5.8 X10^3/uL (4.5-11.0)
[2021-10-10 20:57] LABS: Alanine Aminotransferase 16 IU/L (<35); Albumin 4.5 g/dL (3.5-5.0); Albumin Globulin Ratio 1.3 (1.0-2.8); Alkaline Phosphatase 56 U/L (38-126); Aspartate Aminotransferase 29 IU/L (14-36); BUN Creatinine Ratio 18.4 (6-22); Bilirubin Total 0.4 mg/dL (0.2-1.3); Blood Urea Nitrogen 14 mg/dL (7-17); Calcium 9.3 mg/dL (8.4-10.2); Carbon Dioxide 25 mmol/L (22-32); Chloride 110 mmol/L (98-107); Creatine Kinase 57 U/L (30-135); Estimated Glomerular Filt Rate > 60.0 mL/min (>60); Globulin 3.5 g/dL (1.7-4.1); Glucose 106 mg/dL (80-110); HEMOLYSIS 37 (0-50); Lipase 243 U/L (23-300); Magnesium 2.2 mg/dL (1.6-2.3); Potassium 4.1 mmol/L (3.4-5.1); Sodium 142 mmol/L (137-145)
[2021-10-10 21:08] LABS: COVID19 -Nasal RAPID Negative (Negative)
[2021-10-10 21:09] LABS: Troponin I < 0.012 ng/mL (0.01-0.034)
[2021-10-10 23:09] LABS: Troponin I 0.023 ng/mL (0.01-0.034)
== END 2021-10-10 23:48 | disposition home or self-care (01) ==
PROVIDERS: Emergency Provider Emergency Medicine; PCP Physician Assistant
DX: R07.89 Other chest pain (principal); Z20.822 Contact with and (suspected) exposure to COVID-19
CPT/HCPCS: 36415; 71045; 80053; 82550; 83690; 83735; 84484; 85025; 87635; 93005; 99283; 99284; C9803

== ENCOUNTER → 2022-09-14 10:46 | Outpatient (CLI) | payer OTHER, SELFPAY ==
--- NOTE | 2022-09-14 10:48 | DI.RAD.S_ITS ---
PROCEDURE: XR CHEST 2V INDICATIONS: COUGH TECHNIQUE: 2 views of the chest were acquired. COMPARISON: [facility], , XR CHEST 1V, 10/10/2021, 20:37. FINDINGS: Surgical changes and devices: None. Lungs and pleura: Lungs are clear. No pleural effusions or pneumothorax. Mediastinum: Mediastinal contours are normal. Heart size is normal. Bones and chest wall: No suspicious bony abnormalities. Soft tissues appear unremarkable. IMPRESSION: No acute cardiopulmonary findings. No change from the prior Approved by: Brice Alvarado M.D. on 09/14/2022 at 17:14
== END ==
PROVIDERS: PCP Physician Assistant; Referring Provider Physician Assistant; Visit Provider Physician Assistant
DX: R05.3 Chronic cough (principal)
CPT/HCPCS: 71046

== ENCOUNTER → 2022-09-17 13:24 | Outpatient (CLI) | payer OTHER, SELFPAY ==
--- NOTE | 2022-09-23 08:48 | PM.PFT.1 ---
Pulmonary Function Test Referral & Results Date Patient Seen: 09/17/22 Requesting provider: Juanita Rees Results: The spirometry demonstrates an FVC of 3.23 L which is 123% of predicted. The FEV1 was measured at 2.34 L which is 117% of predicted. The FEV1/FVC ratio was 72 which is 93% of predicted. Following the administration of bronchodilator there was a 19% improvement in FEF 25-75%. Lung volumes show an SVC of 3.09 L which is 122% of predicted. The diffusing capacity was measured at 18.35 which is 97% of predicted. The maximum voluntary ventilation was normal Interpretation: This study demonstrates normal pulmonary function
== END ==
PROVIDERS: PCP Physician Assistant; Referring Provider Physician Assistant; Visit Provider Physician Assistant
DX: R05.3 Chronic cough (principal); J98.8 Other specified respiratory disorders
CPT/HCPCS: 94060; 94726; 94729

== ENCOUNTER 2023-02-08 19:14 | Emergency (ER) | payer OTHER, SELFPAY ==
[2023-02-08 19:17] VITALS: BP 184/99; PULSE 89; RESP 16; TEMP 36.9; O2SAT 97; BMI 25.4
--- NOTE | 2023-02-08 19:25 | DI.CT.S_ITS ---
PROCEDURE: CT STROKE INDICATIONS: extremity weakness x 1 hour TECHNIQUE: Noncontrast 4.5 mm thick angled axial sections acquired from the foramen magnum to the vertex, with coronal reformats. For radiation dose reduction, the following was used: automated exposure control, adjustment of mA and/or kV according to patient size. COMPARISON: None. FINDINGS: Image quality: Excellent. CSF spaces: Basal cisterns are patent. No extra-axial fluid collections. The ventricles are symmetric in size and shape. Brain: No intracranial bleeds or masses. There is cerebral volume loss for age, with resultant ventricular and sulcal prominence. There are periventricular and deep white matter chronic small vessel ischemic changes. There is intracranial internal carotid artery atherosclerosis. Skull and face: Calvarium and visualized facial bones appear intact, without suspicious lesions. Sinuses: Visualized sinuses and mastoids are clear. IMPRESSION: No acute intracranial abnormality. Findings discussed with Dr. Larson on 02/08/2023 at 19:56 hours. This study fulfills neurological imaging criteria for inclusion or exclusion of acute stroke therapies based on available published neurological guidelines. Dictated by: Thomas Eckert M.D. on 02/08/2023 at 19:56 Approved by: Thomas Eckert M.D. on 02/08/2023 at 19:56
--- NOTE | 2023-02-08 19:25 | DI.CT.S_ITS ---
PROCEDURE: CT ANGIO HEAD AND NECK INDICATIONS: extremity weakness x 1 hour TECHNIQUE: Pre-contrast 4.5 mm thick sections acquired from the foramen magnum to the vertex. After the administration of intravenous contrast, 1 mm thick sections acquired from the aortic arch through the [place]. Post-contrast 4.5 mm thick sections then re-acquired from the foramen magnum to the vertex. 3-dimensional [id number] (MIP) and/or volume rendering reformats were acquired of the central intracranial vasculature and neck separately. For radiation dose reduction, the following was used: automated exposure control, adjustment of mA and/or kV according to patient size. COMPARISON: None. FINDINGS: Image quality: Excellent. BRAIN: CSF spaces: Ventricles are normal in size and shape. Basal cisterns are patent. No extra-axial fluid collections. Brain: No midline shift. No intracranial bleeds or masses. Alexander-white matter interface appears intact. Skull and face: Calvarium and facial bones appear intact, without suspicious lesions. Orbits appear normal. Sinuses: Sinuses and mastoids are clear. HEAD CT ANGIOGRAPHY: Anterior circulation: Intracranial internal carotid arteries are normal in size and flow. The flow within the paired anterior cerebral arteries is normal and symmetric. The flow within the middle cerebral arteries is normal and symmetric. The anterior communicating artery is seen. No aneurysms are seen. Posterior circulation: Visualized portions of the vertebral arteries demonstrate normal caliber, and join to form a normal appearing basilar artery. Flow within the posterior cerebral arteries is normal and symmetric. No aneurysms are seen. NECK CT ANGIOGRAPHY: Carotid system: The great vessels demonstrate a conventional anatomy as they arise from the aortic arch. The origins of the common carotid arteries appear patent. The common carotid arteries demonstrate normal caliber and courses. The bifurcation regions are both widely patent. The internal carotid arteries demonstrate normal calibers and courses. Posterior circulation: The origins of the vertebral arteries both appear widely patent. The more superior extracranial portions of both vertebral arteries also demonstrate normal courses and calibers. They join to form a normal appearing basilar artery. Soft tissues: Visualized neck soft tissues demonstrate no suspicious abnormalities. Bones: No suspicious bony lesions. Visualized cervical spine appears normally aligned. IMPRESSION: 1. No acute process involving the arterial tree of the head and neck. Any quantitative measurements of stenosis were performed using NASCET criteria. Dictated by: Thomas Eckert M.D. on 02/08/2023 at 20:01 Approved by: Thomas Eckert M.D. on 02/08/2023 at 20:03
[2023-02-08 19:42] LABS: Add Manual Diff / Slide Review NO; Basophils Absolute Auto 100 /uL (0-100); Basophils Percent Auto 0.7 % (0-2); Eosinophils Absolute Auto 100 /uL (0-450); Eosinophils Percent Auto 1.6 % (2-4); Hemoglobin 12.8 g/dL (12.0-16.0); Lymphocytes Absolute Auto 1900 /uL (1100-4500); Lymphocytes Percent Auto 25.6 % (25-40); Mean Corpuscular HGB Conc 32.9 % (30-36); Mean Corpuscular Hemoglobin 26.2 PG (26-34); Mean Corpuscular Volume 79.7 fL (80-100); Monocytes Absolute Auto 700 /uL (0-900); Monocytes Percent Auto 8.8 % (3-14); Neutrophils Absolute Auto 4700 /uL (1500-7000); Neutrophils Percent Auto 63.3 % (50-75); Platelet Count 338 X10^3/uL (150-400); Red Blood Cell Count 4.89 X10^6/uL (4.0-5.2); Red Cell Distribution Width 17.6 % (11.6-14.8); White Blood Cell Count 7.4 X10^3/uL (4.5-11.0)
[2023-02-08 20:03] LABS: Prothrombin Time 11.5 SECONDS (10.1-12.7)
--- NOTE | 2023-02-08 20:05 | ED.EXTPRO ---
HPI - Extremity Problem General Chief complaint: Extremity Problem,Nontraumatic Stated complaint: numb, drained, dizzy t-0 Time Seen by Provider: 02/08/23 19:24 Source: patient Mode of arrival: Ambulatory History of Present Illness HPI Narrative: 67-year-old female nonsmoker with history of Sjogren's, TIA presents with a chief complaint of sudden onset bilateral arm and right leg numbness earlier today while driving. She states she has no headache or blurred vision, no neck pain, no chest pain or shortness of breath. No exertional symptoms, no exercise intolerance. No abdominal pain, nausea or vomiting. No trouble with bowel movements or urinating. She complains only of tingling of the lateral aspects of her arms and the lateral portion of her right lower extremity. Her symptoms were present on arrival was soon after improved. She denies any issues with balance, blurred vision, trouble with speech Related Data Home Medications Medication Instructions Recorded Confirmed albuterol sulfate 90 mcg/actuation 1 puff INH PRN PRN Wheezing ##0 08/12/17 05/27/22 aerosol inhaler (Proventil HFA) budesonide-formoterol HFA 80 2 puff INH DAILY ##0 08/12/17 05/27/22 mcg-4.5 mcg/actuation aerosol inhaler (Symbicort) buspirone 5 mg tablet 10 mg PO QPM ##0 08/12/17 05/27/22 calcium carbonate 600 mg calcium 600 mg PO QDAY ##0 08/12/17 05/27/22 (1,500 mg) tablet cholecalciferol (vitamin D3) 25 1,000 unit PO QDAY ##0 08/12/17 05/27/22 mcg (1,000 unit) tablet (Vitamin D3) desloratadine 5 mg tablet 5 mg PO QDAY ##0 08/12/17 05/27/22 fluticasone propionate 50 2 spray intranasal QDAY ##0 08/12/17 05/27/22 mcg/actuation nasal spray,suspension fluticasone 1 spray DAILY 02/24/18 05/27/22 bupropion HCl 300 mg 24 hr tablet, 300 mg PO QAM 05/27/22 05/27/22 extended release montelukast 10 mg tablet 10 mg PO DAILY 05/27/22 05/27/22 pantoprazole 40 mg tablet,delayed 40 mg PO DAILY 05/27/22 05/27/22 release vit C 250 mg-vit E 90 mg-zinc 40 1 tab PO DAILY 05/27/22 05/27/22 mg-copper 1 ds-jhizel-kvmefn capsule (PreserVision AREDS-2) zolpidem 10 mg tablet (Ambien) 5 mg PO BEDTIME #0 tabs 05/27/22 05/27/22 Previous Rx's Medication Instructions Recorded amlodipine 10 mg tablet 10 mg PO DAILY #30 tabs 02/08/23 Allergies Allergy/AdvReac Type Severity Reaction Status Date / Time Sulfa (Sulfonamide Allergy Severe ITCHING Verified 02/08/23 19:17 Antibiotics) [SULFA (SULFONAMIDE ANTIBIOTICS)] Review of Systems Review of Systems Narrative: GENERAL: Denies chills, fatigue, malaise, fever, sweats. HEENT: Denies sinus pain, ear pain, sore throat, difficulty swallowing, dizziness. RESPIRATORY: Denies dyspnea, cough, wheezing, hemoptysis, sputum. CARDIOVASCULAR: Denies chest pain, palpitations, orthopnea, edema, GASTROINTESTINAL: Denies nausea, vomiting, abdominal pain, diarrhea, constipation, melena. : Denies dysuria, frequency, incontinence, hematuria, urinary retention. MUSCULOSKELETAL: denies weakness, joint pain, or bony pain SKIN: Denies rash, skin lesions, or other NEUROLOGIC: see HPI PSYCHIATRIC: No concerning psychosocial issues. 12 point review of systems is negative except for those stated above Patient History Medical History TIA (transient ischemic attack) Social History household members: spouse Smoking Status: Never smoker Smoking Status: Never smoker alcohol intake frequency: holidays/special occasions only Substance Use Type: does not use Exam Narrative Exam Narrative: GENERAL: [67] year old patient appears stated age. Well-developed patient, in mild distress. HEAD: Atraumatic. Normocephalic. EYES: Pupils equal round and reactive. Extraocular motions intact. No scleral icterus. No injection or drainage. ENT: Nose without bleeding, purulent drainage. Throat without erythema, tonsillar hypertrophy or exudate. Airway patent. NECK: Trachea midline. Non tender CARDIOVASCULAR: Regular rate and rhythm without murmurs, gallops, or rubs. RESPIRATORY: Clear to auscultation. Breath sounds equal bilaterally. No wheezes, rales, or rhonchi. GASTROINTESTINAL: Abdomen soft, non-tender, nondistended. EXTREMITIES: No edema or joint tenderness. BACK: Nontender without deformity or crepitance. No flank tenderness. NEURO: AOx3. SKIN: No rash or erythema of visible areas NIH Stroke Scale 1a. LOC: Patient is alert and keenly responsive (0) 1b. LOC Questions: Patient answers both LOC questions accurately (0) 1c. LOC Commands: Patient performs both tasks correctly (0) 2. Best Gaze: Normal (0) 3. Visual: No visual loss (0) 4. Facial palsy: Normal symmetrical movements (0) 5. Motor arm: No drift (0) 6. Motor leg: No drift (0) 7. Limb ataxia: Absent (0) 8. Sensory: Normal (0) 9. Best language: No aphasia; normal (0) 10. Dysarthria: Normal (0) 11. Extinction and inattention: No abnormality (0) NIHSS: 0 Initial Vital Signs Initial Vital Signs: Vital Signs Temperature 98.5 F 02/08/23 19:17 Pulse Rate 89 02/08/23 19:17 Respiratory Rate 16 02/08/23 19:17 Blood Pressure 184/99 H 02/08/23 19:17 Pulse Oximetry 97 02/08/23 19:17 Oxygen Delivery Method Room Air 02/08/23 19:17 Course Course Course Narrative: Symptoms improves soon after arrival, it is noted that initial blood pressure is in the upper 180s and improved into the 160s Orders Ordered: ED Orders 02/08/23 20:28 Urine Culture Stat Urine Drug Screen, Rapid Stat 02/08/23 20:33 COVID19 -Nasal RAPID Stat Vital Signs Vital signs: Vital Signs - 8 hr 02/08/23 22:24 02/08/23 22:25 02/08/23 22:25 Pulse Rate 81 Blood Pressure 161/86 H Pulse Oximetry 97 96 MDM - Extremity (Nontraumatic) Lab Data 02/08/23 19:30 02/08/23 19:30 Labs: Lab Results 02/08/23 02/08/23 02/08/23 Range/Units 19:30 19:30 19:30 WBC 7.4 (4.5-11.0) X10^3/uL RBC 4.89 (4.0-5.2) X10^6/uL Hgb 12.8 (12.0-16.0) g/dL Hct 39.0 (36-46) % MCV 79.7 L (80-100) fL MCH 26.2 (26-34) PG MCHC 32.9 (30-36) % RDW 17.6 H (11.6-14.8) % Plt Count 338 (150-400) X10^3/uL Neut % (Auto) 63.3 (50-75) % Lymph % (Auto) 25.6 (25-40) % Teller % (Auto) 8.8 (3-14) % Eos % (Auto) 1.6 L (2-4) % Baso % (Auto) 0.7 (0-2) % Neut # (Auto) 4700 (3058-5101) /uL Lymph # (Auto) 1900 (9750-9247) /uL Teller # (Auto) 700 (0-900) /uL Eos # (Auto) 100 (0-450) /uL Baso # (Auto) 100 (0-100) /uL PT 11.5 (10.1-12.7) SECONDS INR 1.0 (0.9-1.3) APTT 31 (26-36) SECONDS Sodium 140 (137-145) mmol/L Potassium 4.1 (3.4-5.1) mmol/L Chloride 105 (98-107) mmol/L Carbon Dioxide 25 (22-32) mmol/L BUN 11 (7-17) mg/dL Creatinine 0.56 (0.52-1.04) mg/dL Estimated GFR > 60 (>60) mL/min BUN/Creatinine Ratio 19.6 (6-22) Glucose 107 (80-110) mg/dL Calcium 9.4 (8.4-10.2) mg/dL Total Bilirubin 0.6 (0.2-1.3) mg/dL AST 36 (14-36) IU/L ALT 28 (<35) IU/L Alkaline Phosphatase 80 (38-126) U/L Total Creatine Kinase 53 (30-135) U/L CK-MB (CK-2) TNP CK-MB (CK-2) Rel Index TNP Troponin I < 0.012 (0.01-0.034) ng/mL Total Protein 8.4 H (6.3-8.2) g/dL Albumin 4.5 (3.5-5.0) g/dL Globulin 3.9 (1.7-4.1) g/dL Albumin/Globulin Ratio 1.2 (1.0-2.8) Urine Color Urine Appearance Urine pH Ur Specific [place] Urine Protein Urine Glucose (UA) Urine Ketones Urine Occult Blood Urine Nitrate Urine Bilirubin Urine Urobilinogen Ur Leukocyte Esterase Urine RBC Urine WBC Ur Squamous Epith Cells Ur Transition Epith Cell Ur Renal Epithelial Cell Calcium Oxalate Crystal Uric Acid Crystals Triple Phos Crystals Other Crystals Amorphous Sediment Urine Bacteria Hyaline Casts Granular Casts RBC Casts WBC Casts Other Casts Urine Mucus Urine Trichomonas Urine Yeast Urine Sperm Ur Culture Indicated? Micro UA Comment U Opiates 300ng/mL cut (Negative) Ur Oxycodone Screen (Negative) Urine Methadone Screen (Negative) Ur Barbiturates Screen (Negative) U Tricyclic Antidepress (Negative) Ur Phencyclidine Scrn (Negative) Ur Amphetamines Screen (Negative) U Methamphetamines Scrn (Negative) Ur MDMA Scrn (Ecstasy) (Negative) U Benzodiazepines Scrn (Negative) Urine Cocaine Screen (Negative) U Marijuana (THC) Screen (Negative) Ethyl Alcohol < 10 ( - 10) mg/dL SARS-CoV-2 (PCR) (Negative) 02/08/23 02/08/23 02/08/23 Range/Units 20:28 20:28 20:33 WBC (4.5-11.0) X10^3/uL RBC (4.0-5.2) X10^6/uL Hgb (12.0-16.0) g/dL Hct (36-46) % MCV (80-100) fL MCH (26-34) PG MCHC (30-36) % RDW (11.6-14.8) % Plt Count (150-400) X10^3/uL Neut % (Auto) (50-75) % Lymph % (Auto) (25-40) % Teller % (Auto) (3-14) % Eos % (Auto) (2-4) % Baso % (Auto) (0-2) % Neut # (Auto) (9437-9324) /uL Lymph # (Auto) (4943-3714) /uL Teller # (Auto) (0-900) /uL Eos # (Auto) (0-450) /uL Baso # (Auto) (0-100) /uL PT (10.1-12.7) SECONDS INR (0.9-1.3) APTT (26-36) SECONDS Sodium (137-145) mmol/L Potassium (3.4-5.1) mmol/L Chloride (98-107) mmol/L Carbon Dioxide (22-32) mmol/L BUN (7-17) mg/dL Creatinine (0.52-1.04) mg/dL Estimated GFR (>60) mL/min BUN/Creatinine Ratio (6-22) Glucose (80-110) mg/dL Calcium (8.4-10.2) mg/dL Total Bilirubin (0.2-1.3) mg/dL AST (14-36) IU/L ALT (<35) IU/L Alkaline Phosphatase (38-126) U/L Total Creatine Kinase (30-135) U/L CK-MB (CK-2) CK-MB (CK-2) Rel Index Troponin I (0.01-0.034) ng/mL Total Protein (6.3-8.2) g/dL Albumin (3.5-5.0) g/dL Globulin (1.7-4.1) g/dL Albumin/Globulin Ratio (1.0-2.8) Urine Color Cancelled Urine Appearance Cancelled Urine pH Cancelled Ur Specific [place] Cancelled Urine Protein Cancelled Urine Glucose (UA) Cancelled Urine Ketones Cancelled Urine Occult Blood Cancelled Urine Nitrate Cancelled Urine Bilirubin Cancelled Urine Urobilinogen Cancelled Ur Leukocyte Esterase Cancelled Urine RBC Cancelled Urine WBC Cancelled Ur Squamous Epith Cells Cancelled Ur Transition Epith Cell Cancelled Ur Renal Epithelial Cell Cancelled Calcium Oxalate Crystal Cancelled Uric Acid Crystals Cancelled Triple Phos Crystals Cancelled Other Crystals Cancelled Amorphous Sediment Cancelled Urine Bacteria Cancelled Hyaline Casts Cancelled Granular Casts Cancelled RBC Casts Cancelled WBC Casts Cancelled Other Casts Cancelled Urine Mucus Cancelled Urine Trichomonas Cancelled Urine Yeast Cancelled Urine Sperm Cancelled Ur Culture Indicated? Cancelled Micro UA Comment Cancelled U Opiates 300ng/mL cut Negative (Negative) Ur Oxycodone Screen Negative (Negative) Urine Methadone Screen Negative (Negative) Ur Barbiturates Screen Negative (Negative) U Tricyclic Antidepress Negative (Negative) Ur Phencyclidine Scrn Negative (Negative) Ur Amphetamines Screen Negative (Negative) U Methamphetamines Scrn Negative (Negative) Ur MDMA Scrn (Ecstasy) Negative (Negative) U Benzodiazepines Scrn Negative (Negative) Urine Cocaine Screen Negative (Negative) U Marijuana (THC) Screen Negative (Negative) Ethyl Alcohol ( - 10) mg/dL SARS-CoV-2 (PCR) Negative (Negative) Urine Dip Bedside Urine Glucose Negative Bedside Urine Bilirubin - Negative Bedside Urine Ketone - Negative Urine Specific [place] 1.000 Bedside Urine Occult Blood - Negative Bedside Urine pH 7.0 Bedside Urine Protein - Negative Bedside Urine Urobilinogen - Negative Bedside Urine Nitrite - Negative Bedside Urine Leukocytes + 70 Esterase MDM Narrative Medical decision making narrative: [67] year old patient presents with arm tingling Multiple etiologies for patient's symptoms considered including, but not limited to: [TIA vs. HTN vs. cardiac ischemia vs. other] Prior Charts reviewed in our EMR Primary Historian: patient Labs reviewed and interpreted by myself: WNL Imaging reviewed: Head CT, CTA Head/Neck WNL Patient's symptoms improved over duration of stay with above-stated therapies. Findings and discharge diagnosis discussed with patient/family followed by verbalization of understanding Return precautions discussed with patient/family whom verbalize understanding of diagnosis and plan Discharge Plan Departure Patient Disposition: Home Clinical Impression: Paresthesia and pain of both upper extremities Instructions: DI for Numbness/Tingling Activity Restrictions/Additional Instructions: *You have been diagnosed with [brief upper extremity numbness and tingling. Your history and physical exam, labs and imaging are all reassuring and there is no evidence of heart attack or stroke. Your symptoms did seem to improve with improved blood pressure raising the question of the possibility of blood pressure being the source. *What to do: *Please continue to take your regular medications as directed. [x ] New medication prescriptions sent to your pharmacy: [[facility] ] [ ] New medication written as a paper prescription [ ] No new medications given *Please follow up with your primary care provider in 2-3 days, call for an appointment. Let them know you were seen in the Emergency Department and that we ask that you be seen in follow up. We will electronically transmit a record of today's note if your PCP is in our system *If you do not have a primary care provider please contact the [facility] Resource line at [phone]. They will ask some questions about your medical history and help get you set up with a doctor in the community. *Return to Emergency Department if you should have any new, worsening or concerning symptoms, such as [fever greater than 101 F, shaking chills, worsening pain, persistent vomiting or other bothersome symptoms] Prescriptions: New amlodipine 10 mg tablet 10 mg PO DAILY Qty: 30 0RF No Action desloratadine 5 MG tablet 5 mg PO QDAY Qty: 0 albuterol sulfate [Proventil HFA] 90 MCG/PUFF HFA aerosol inhaler 1 puff INH PRN PRN (Reason: Wheezing) Qty: 0 fluticasone propionate 16 GM spray,suspension 2 spray Intranasal QDAY Qty: 0 budesonide-formoterol [Symbicort] 80 MCG/4.5 MCG HFA aerosol inhaler 2 puff INH DAILY Qty: 0 Patient Comments: Pt reports she only takes once/day not twice cholecalciferol (vitamin D3) [Vitamin D3] 1,000 UNIT tablet 1,000 unit PO QDAY Qty: 0 calcium carbonate 600 MG tablet 600 mg PO QDAY Qty: 0 buspirone 5 MG tablet 10 mg PO QPM Qty: 0 zolpidem [Ambien] 10 mg tablet 5 mg PO BEDTIME Qty: 0 Patient Comments: 5-10mg fluticasone 1 spray aerosol 1 spray DAILY pantoprazole 40 mg tablet,delayed release (DR/EC) 40 mg PO DAILY PreserVision AREDS-2 250-90-40-1 mg capsule 1 tab PO DAILY bupropion HCl 300 mg tablet extended release 24 hr 300 mg PO QAM montelukast 10 mg tablet 10 mg PO DAILY Referrals: Juanita Rees PA-C [Primary Care Provider] - Stand Alone Forms: Patient Portal/API
[2023-02-08 20:06] LABS: PTT Partial Thromboplastin Tim 31 SECONDS (26-36)
[2023-02-08 20:08] LABS: HEMOLYSIS < 15 (0-50); Potassium 4.1 mmol/L (3.4-5.1)
[2023-02-08 20:09] LABS: Alanine Aminotransferase 28 IU/L (<35); Albumin 4.5 g/dL (3.5-5.0); Albumin Globulin Ratio 1.2 (1.0-2.8); Alkaline Phosphatase 80 U/L (38-126); Aspartate Aminotransferase 36 IU/L (14-36); BUN Creatinine Ratio 19.6 (6-22); Bilirubin Total 0.6 mg/dL (0.2-1.3); Blood Urea Nitrogen 11 mg/dL (7-17); Calcium 9.4 mg/dL (8.4-10.2); Carbon Dioxide 25 mmol/L (22-32); Chloride 105 mmol/L (98-107); Creatine Kinase 53 U/L (30-135); Estimated Glomerular Filt Rate > 60 mL/min (>60); Ethanol (ETOH) < 10 mg/dL; Globulin 3.9 g/dL (1.7-4.1); Glucose 107 mg/dL (80-110); Sodium 140 mmol/L (137-145); Total Protein 8.4 g/dL (6.3-8.2)
[2023-02-08 20:19] LABS: Troponin I < 0.012 ng/mL (0.01-0.034)
[2023-02-08 20:35] LABS: UR Morphine/Opiate cutoff 300 Negative (Negative); Ur Creatinine Normal (Normal); Ur Specific Gravity Normal (Normal); Urine Amphetamines Negative (Negative); Urine Barbiturates Negative (Negative); Urine Benzodiazepines Negative (Negative); Urine Cocaine Negative (Negative); Urine MDMA Negative (Negative); Urine Methadone Negative (Negative); Urine Methamphetamines Negative (Negative); Urine Oxycodone Negative (Negative); Urine Phencyclidine Negative (Negative); Urine Tetrahydrocannabinol Negative (Negative); Urine Tricyclic Antidepressant Negative (Negative); Urine pH Normal (Normal)
[2023-02-08 20:54] LABS: COVID19 -Nasal RAPID Negative (Negative)
[2023-02-08 22:24] VITALS: O2SAT 97
[2023-02-08 22:25] VITALS: BP 161/86; PULSE 81; O2SAT 96
== END 2023-02-08 22:29 | disposition home or self-care (01) ==
PROVIDERS: Emergency Provider Emergency Medicine; PCP Physician Assistant
DX: R20.2 Paresthesia of skin (principal); R53.1 Weakness; Z79.01 Long term (current) use of anticoagulants
CPT/HCPCS: 36415; 70450; 70496; 70498; 80053; 80305; 80320; 81003; 82550; 84484; 85025; 85610; 85730; 87086; 87635; 93005; 93010; 99284; C9803; Q9967

== ENCOUNTER → 2023-11-01 11:00 | Outpatient (CLI) | payer OTHER, SELFPAY ==
--- NOTE | 2023-11-01 11:05 | DI.RAD.S_ITS ---
PROCEDURE: XR CERVICAL SPINE 2V OR 3V INDICATIONS: NECK PAIN TECHNIQUE: 3 view(s) of the cervical spine were acquired. COMPARISON: None. FINDINGS: Bones: There is straightening and reversal of normal cervical lordosis. No acute fracture or dislocation. Degenerative endplate changes, loss of disc height and bilateral facet hypertrophic changes throughout cervical spine is seen most notably at C4-5 and C5-6 levels.. The lateral masses of C1 appear intact on the odontoid view. No suspicious bony lesions. Soft tissues: No prevertebral soft tissue swelling. IMPRESSION: Degenerative disc disease throughout cervical spine. No displaced fracture or traumatic subluxation. Dictated by: Emir Sheridan M.D. on 11/01/2023 at 15:33 Approved by: Emir Sheridan M.D. on 11/01/2023 at 15:34
== END ==
PROVIDERS: PCP Physician Assistant; Referring Provider Physician Assistant; Visit Provider Physician Assistant
DX: M50.321 Other cervical disc degeneration at C4-C5 level (principal); R20.0 Anesthesia of skin
CPT/HCPCS: 72040

== ENCOUNTER → 2024-01-27 15:36 | Outpatient (CLI) | payer OTHER, SELFPAY ==
--- NOTE | 2024-01-27 | DI.MRI.S_ITS ---
PROCEDURE: MR CERVICAL SPINE WO CON INDICATIONS: CERVICALGIA, OSTEOARTHRITIS OF SPINE TECHNIQUE: Noncontrast sagittal T1 spin echo and T2 fast spin echo, sagittal STIR, foraminal oblique sagittal T2 fast spin echo, and axial gradient echo or T2 fast spin echo through the cervical spine. COMPARISON: None. FINDINGS: Image quality: Excellent. Alignment and Curvature: Reversal the normal cervical lordosis. Grade 1 anterolisthesis of C3 on C4. Grade 1 retrolisthesis of C4 on C5 and C5 on C6. Grade 1 anterolisthesis of C7 on T1. Bone Marrow: Multilevel degenerative endplate changes. Marrow demonstrates normal overall signal. Spinal Cord: Small focus of T2 hyperintense signal at C5-C6. No cerebellar tonsillar herniation. Paraspinous Soft Tissues: No paravertebral masses. Prevertebral soft tissues are normal in thickness. C2-C3: No central canal stenosis. Facet and uncovertebral arthropathy. Mild left and no right neural foraminal stenosis. C3-C4: Disc desiccation and height loss. Posterior disc osteophyte complex abutting the ventral cord. Mild central canal stenosis. Facet and uncovertebral arthropathy. Severe left and moderate right neural foraminal stenosis. C4-C5: Disc desiccation height loss. Posterior disc osteophyte complex. Effacement of the CSF space. Moderate to severe central canal stenosis. Facet and uncovertebral arthropathy. Moderate bilateral neural foraminal stenosis. C5-C6: Disc desiccation height loss. Posterior disc osteophyte complex. Moderate central canal stenosis. Facet and uncovertebral arthropathy. Severe left and mild right neural foraminal stenosis. C6-C7: Disc desiccation and minimal posterior disc osteophyte complex. No central canal stenosis. Facet and uncovertebral arthropathy. Moderate bilateral neural foraminal stenosis. C7-T1: No central canal or neural foraminal stenosis. IMPRESSION: 1. Multilevel degenerative changes of the cervical spine as described above. 2. Moderate to severe central canal stenosis at C4-C5. Moderate central canal stenosis at C5-C6. 3. Severe neural foraminal stenosis on the left at C3-C4 and C5-C6. 4. Small focus of T2 hyperintense signal within the cord at C5-C6, may represent myelomalacia. Dictated by: Vick Tellez M.D. on 01/27/2024 at 16:42 Approved by: Vick Tellez M.D. on 01/27/2024 at 16:47
== END ==
PROVIDERS: PCP Physician Assistant; Referring Provider Physician Assistant; Visit Provider Physician Assistant
DX: M47.22 Other spondylosis with radiculopathy, cervical region (principal); M48.02 Spinal stenosis, cervical region; M54.2 Cervicalgia
CPT/HCPCS: 72141

== ENCOUNTER 2024-06-22 06:33 | Day surgery (SDC) | payer OTHER, SELFPAY ==
--- NOTE | 2024-06-22 | PATH_ITS ---
[facility] Accession Number: [id number] No. of containers..01 Tissue . 01 Material submitted: . stomach - ANTRUM . 01 Diagnosis: ANTRUM: Gastric mucosa with mild chronic inflammation and focal intestinal metaplasia. No Helicobacter organisms identified. No dysplasia or malignancy identified. STO 06/27/20241400 Local . 01 Electronically signed: . Henry Rosado MD, Pathologist NPI- [id number] . 01 Gross description: . Received in formalin with two patient identifiers and antrum, are two rojo soft tissue fragments, 0.3 to 0.4 cm in greatest dimension, submitted in A1. ([id number]) /MRV 06/27/20241400 Local . 01 Microscopic: . ANTRUM: An immunohistochemical stain was performed to evaluate for Helicobacter organisms and is negative. The control stains appropriately. * This test was developed and the performance characteristics were validated by [facility]. It has not been cleared or approved by the Food and Drug Administration. . 01 Pathologist provided ICD-10: K29.50, K31.A0 . 01 CPT . 180448, U38311 Specimen Comment: A courtesy copy of this report has been sent to [phone] Performed at: [address] [address], [place], [place] [id number] MD Henry Rosado MD Phone: [phone]
[2024-06-22 07:28] VITALS: BP 118/70; PULSE 78; RESP 16; TEMP 36.6; O2SAT 95
--- NOTE | 2024-06-22 07:30 | PM.PREOP ---
Pre-operative Note COVID-19 COVID-19 status: Not tested Interval Note History & Physical reviewed/Exam performed by Physician: Yes Changes to H&P: No ASA Class (for procedural sedation): II
[2024-06-22 07:56] VITALS: BP 93/64; PULSE 82; RESP 21; TEMP 36.3; O2SAT 93
[2024-06-22 07:57] VITALS: BP 99/66; PULSE 79; RESP 14; O2SAT 93
--- NOTE | 2024-06-22 08:00 | PM.OP.EGD ---
Operative Date/Time/Diagnoses Date of procedure: 06/22/24 Time of procedure: 08:00 Pre-op diagnosis: Chronic cough Post-op diagnosis: same Procedure & Clinicians Study performed: Esophagogastroduodenoscopy Same procedure as scheduled: Yes Surgeon: Roosevelt Amaral Procedure Notes Procedure in detail: Surgeon: Roosevelt Amaral MD Anesthesia: Mahnaz Patel CRNA A timeout was performed. A bite blocked was placed. The patient was positioned in the left lateral decubitus position. Anesthesia was administered. The endoscope was inserted through the bite block and passed through the esophagus and stomach and into the duodenum. The duodenal mucosa appeared normal. The scope was withdrawn into the duodenal bulb and no abnormalities were seen. The scope was withdrawn into the stomach. There was questionable mild antritis. Random biopsies were taken from the antrum with cold forceps. The rest of the stomach was normal. The scope was retroflexed and no hiatal hernia was observed. The scope was withdrawn into the esophagus and no abnormalities were observed within the esophagus. The remainder of the esophagus was normal. The scope was withdrawn. The patient was awakened and brought to recovery. Sedation time: 3 minutes Findings: Questionable mild antritis Post-procedure Disposition: PACU
[2024-06-22 08:01] VITALS: BP 99/76; PULSE 83; RESP 16; O2SAT 96
[2024-06-22 08:08] VITALS: BP 117/78; PULSE 72; RESP 16; O2SAT 98
--- NOTE | 2024-06-22 08:17 | SUR.PHASEII ---
All belongings returned to patient. Patient to vehicle via wheelchair with assistance of volunteer.
== END 2024-06-22 08:17 | disposition home or self-care (01) ==
PROVIDERS: PCP Physician Assistant; Referring Provider Surgery; Visit Provider Surgery
PROC: 0DJ08ZZ Inspection of Upper Intestinal Tract, Via Natural or Artificial Opening Endoscopic (ICD-10-PCS; CPT 43239; principal; 2024-06-22 07:45)
DX: R05.3 Chronic cough (principal); K29.50 Unspecified chronic gastritis without bleeding
CPT/HCPCS: 43239; J2704

== ENCOUNTER → 2024-11-13 12:41 | Outpatient (CLI) | payer OTHER, SELFPAY ==
--- NOTE | 2024-11-13 12:44 | DI.RAD.S_ITS ---
PROCEDURE: XR DEXA AXIAL SKELETON INDICATIONS: OSTEOPOROSIS,POST MENOPAUSAL COMPARISON: None. FINDINGS: Lumbar Spine: Bone mineral density 0.931 g/cm2, T score -1.1. Left Femoral Neck: Bone mineral density 0.495 g/cm2, T score -3.2. Left Hip: Bone mineral density 0.625 g/cm2, T score -2.6. Fracture Risk Calculation (when applicable): 10-year fracture risk of a major osteoporotic fracture 24 percent and of a hip fracture 8.6 percent. (T score greater or equal to -1.0 to: NORMAL) (T score from -1.1 to -2.4: OSTEOPENIA) (T score less than or equal to -2.5: OSTEOPOROSIS) IMPRESSION: Osteoporosis--- recommend repeat DEXA in 2 years or less for reassessment of response to treatment. Follow-up guidelines as follows: Osteoporosis: Consider a repeat DEXA and Vertebral Fracture Assessment (VFA) exam in 2 years or sooner if medically necessary, to reassess this patient's status. Osteopenia: Consider a repeat DEXA in 2-3 years to reassess this patient's status, or if there is a new clinical indication. Normal: Consider a repeat DEXA in 5 years or sooner, or if there is a new clinical indication. All treatment decisions require clinical judgment and consideration of individual patient factors, including patient preferences, comorbidities, previous drug use, risk factors not captured in the FRAX model (e.g., frailty, falls, vitamin D deficiency, increased bone turnover, interval significant decline in bone density ) and possible under- or over-estimation of fracture risk by FRAX. In addition, the NOF Guide recommends that FDA-approved medical therapies be considered in postmenopausal women and men age >= 50 years with a: * Hip or vertebral (clinical or morphometric) fracture * T-score of <=-2.5 at the spine or hip * Ten-year fracture probability by FRAX of >= 3% for hip fracture or >=20% for major osteoporotic fracture. Dictated by: Jian Campbell M.D. on 11/13/2024 at 20:24 Approved by: Jian Campbell M.D. on 11/13/2024 at 20:26
== END ==
PROVIDERS: PCP Physician Assistant; Referring Provider Physician Assistant; Visit Provider Physician Assistant
DX: Z13.820 Encounter for screening for osteoporosis (principal); Z78.0 Asymptomatic menopausal state; Z87.81 Personal history of (healed) traumatic fracture; M81.0 Age-related osteoporosis without current pathological fracture
CPT/HCPCS: 77080